=== PATIENT | female | born 1975 | race African-American/Black ===

== ENCOUNTER 2020-09-04 14:55 | Outpatient (REF) | payer MEDICARE, MEDICAID, SELFPAY | END 2020-09-04 14:56 | disposition home or self-care (01) | LOC: HO.LAB 14:55 | PROVIDERS: PCP Internal Medicine; Visit Provider Internal Medicine | DX: Z20.822 Contact with and (suspected) exposure to COVID-19 (principal) | CPT/HCPCS: 36415; C9803; U0003; U0005 ==

== ENCOUNTER 2022-02-24 12:30 | Outpatient (REF) | payer OTHER, SELFPAY ==
[2022-02-24 13:04] LABS: MANUAL DIFF FLAG NO
[2022-02-24 13:23] LABS: Basophils Percent Auto 0.4 % (0-2); Eosinophils Absolute Auto 0.1 X10*3/uL (0.0-0.4); Eosinophils Percent Auto 1.9 % (0-4); Hematocrit 40.4 % (37.0-47.0); Hemoglobin 13.1 g/dl (12.0-16.0); Imm Gran Abs Auto 0.03 X10*3/uL (0.00-0.03); Imm Gran Pct Auto 0.4 % (0.0-0.4); Immature Retic Fraction 11.9 % (3.0-15.9); Lymphocytes Absolute Auto 1.9 X10*3/uL (1.2-4.9); Lymphocytes Percent Auto 26.5 % (20-40); Mean Corpuscular HGB Conc 32.4 g/dl (31.0-35.0); Mean Corpuscular Hemoglobin 25.6 pg (27.0-33.0); Mean Corpuscular Volume 78.9 fL (80.0-98.0); Mean Platelet Volume 10.3 fL (9.4-12.3); Monocytes Absolute Auto 0.4 X10*3/uL (0.1-1.2); Monocytes Percent Auto 5.4 % (2-11); Neutrophils Absolute Auto 4.6 x10*3/uL (2.0-8.3); Neutrophils Percent Auto 65.4 % (45-73); Platelet Count 380 X10*3/uL (160-400); Red Blood Count 5.12 X10*6/uL (4.20-5.50); Red Cell Distribution Width 13.9 % (11.0-16.0); Retic HGB Equivalent 28.9 pg (30.0-35.0); Reticulocyte Percent 2.5 % (0.5-1.8); Reticulocytes Absolute 0.125 X10*6/uL (0.026-0.095)
[2022-02-24 13:34] LABS: Estimated Average Glucose 286 mg/dL; Hemoglobin A1c % 11.6 %
[2022-02-24 14:02] LABS: Alanine Aminotransferase 30 U/L (0-31); Albumin Level 4.2 g/dL (3.5-5.0); Alkaline Phosphatase 100 U/L (39-117); Anion Gap 15 (12-20); Aspartate Amino Transferase 20 U/L (5-31); Bilirubin Total 0.4 mg/dL (0.0-1.0); Blood Urea Nitrogen 17 mg/dL (9-16); Calcium 9.6 mg/dL (8.4-10.2); Carbon Dioxide 23 mmol/L (22-29); Chloride 98 mmol/L (96-108); Cholesterol 382 mg/dL; Estimated Glomerular Filt Rate 43; Glucose Fasting 424 mg/dL (60-99); HDL Cholesterol 45 mg/dL; Iron 128 mcg/dL (30-160); Percent Iron Saturation 38 % (15-50); Potassium 4.9 mmol/L (3.3-5.1); Sodium 131 mmol/L (135-145); Total Iron Binding Capacity 336 mcg/dL (228-428); Total Protein 8.1 g/dL (6.5-8.0); Triglycerides 485 mg/dL; Unsaturated Iron Binding 208 ug/dL
[2022-02-24 14:09] LABS: Ferritin 232 ng/mL (10-250); Thyroid Stimulating Hormone 0.97 uIU/mL (0.32-4.0); Vitamin D 25-OH Total 15.3 ng/mL (>30)
[2022-02-24 14:51] LABS: Amphetamine Screen Urine Not Detected (Not Detect); Barbiturates, Urine Not Detected (Not Detect); Benzodiazepines Screen Urine Not Detected (Not Detect); Cannabinoid Screen Urine Not Detected (Not Detect); Cocaine Screen Urine Not Detected (Not Detect); Fentanyl, urine Not Detected (Not Detect); Opiate Screen Urine Not Detected (Not Detect); Phencyclidine Screen Urine Not Detected (Not Detect)
[2022-02-24 15:32] LABS: Folate 10.8 ng/mL (> or = 4.0); Vitamin B12 651 pg/mL (200-900)
[2022-02-25 04:51] LABS: HBS Num1 0.43 mIU/mL (0-7.99); HBc Num1 0.15 S/CO (0.00-0.79); HBsAGNum1 0.18 S/CO (0.00-0.99); HIV AB/AG Nonreactive (Nonreactive); HIV Num 1 0.08 S/CO (0.00-0.99); Hepatitis B Core Antibody Nonreactive (Nonreactive); Hepatitis B Surface Antigen Negative (Negative); ~HepC Num1 0.06 S/CO (0.00-0.79); ~Hepatitis B Surface Antibody NONREACTIVE (Nonreactive); ~Hepatitis C Antibody Nonreactive (Nonreactive)
[2022-03-02 20:11] LABS: Treponema pallidum Ab FTA ABS Nonreactive (Nonreactive)
== END 2022-02-24 12:31 | disposition home or self-care (01) ==
LOC: HO.LAB 12:30
PROVIDERS: PCP Internal Medicine; Visit Provider Internal Medicine
DX: Z13.1 Encounter for screening for diabetes mellitus (principal); Z11.4 Encounter for screening for human immunodeficiency virus [HIV]; N28.9 Disorder of kidney and ureter, unspecified; E78.00 Pure hypercholesterolemia, unspecified; R79.89 Other specified abnormal findings of blood chemistry
CPT/HCPCS: 80053; 80061; 80307; 82306; 82607; 82728; 82746; 83036; 83540; 84439; 84443; 85025; 85045; 86704; 86706; 86780; 86803; 87340; 87389

== ENCOUNTER 2022-06-07 12:30 | Emergency (ER) | payer SELFPAY ==
[2022-06-07 12:33] VITALS: BP 149/71; PULSE 99; O2SAT 96
[2022-06-07 14:23] VITALS: BP 143/90; PULSE 96; RESP 20; TEMP 36; O2SAT 98; BMI 49.2
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
[2022-06-07] MEDS: Cyclobenzaprine HCl 10 MG TABLET PO (14:32)
[2022-06-07] MEDS: traMADoL HCL 50 MG TABLET PO (14:32)
== END 2022-06-07 14:51 | disposition home or self-care (01) ==
PROVIDERS: Emergency Provider Internal Medicine; PCP Internal Medicine
DX: S16.1XXA Strain of muscle, fascia and tendon at neck level, initial encounter (principal); V43.52XA Car driver injured in collision with other type car in traffic accident, initial encounter; Y93.89 Activity, other specified; Y92.414 Local residential or business street as the place of occurrence of the external cause; Y99.9 Unspecified external cause status
CPT/HCPCS: 99283

== ENCOUNTER 2022-07-05 11:22 | Emergency (ER) | payer OTHER, SELFPAY ==
[2022-07-05 11:44] VITALS: BP 146/47; PULSE 97; O2SAT 96
[2022-07-05 11:49] VITALS: BP 137/92; PULSE 92; RESP 16; TEMP 36.6; O2SAT 98; BMI 42.7
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
[2022-07-05 12:34] LABS: MANUAL DIFF FLAG NO
[2022-07-05 12:39] LABS: Basophils Absolute Auto 0.1 X10*3/uL (0.0-0.2); Basophils Percent Auto 0.9 % (0-2); Eosinophils Absolute Auto 0.2 X10*3/uL (0.0-0.4); Eosinophils Percent Auto 3.3 % (0-4); Hematocrit 39.6 % (37.0-47.0); Hemoglobin 12.9 g/dl (12.0-16.0); Imm Gran Abs Auto 0.02 X10*3/uL (0.00-0.03); Imm Gran Pct Auto 0.3 % (0.0-0.4); Lymphocytes Absolute Auto 2.5 X10*3/uL (1.2-4.9); Lymphocytes Percent Auto 35.9 % (20-40); Mean Corpuscular HGB Conc 32.6 g/dl (31.0-35.0); Mean Corpuscular Hemoglobin 25.9 pg (27.0-33.0); Mean Corpuscular Volume 79.4 fL (80.0-98.0); Mean Platelet Volume 9.8 fL (9.4-12.3); Monocytes Absolute Auto 0.5 X10*3/uL (0.1-1.2); Monocytes Percent Auto 6.9 % (2-11); Neutrophils Absolute Auto 3.6 x10*3/uL (2.0-8.3); Neutrophils Percent Auto 52.7 % (45-73); Platelet Count 361 X10*3/uL (160-400); Red Blood Count 4.99 X10*6/uL (4.20-5.50); Red Cell Distribution Width 13.6 % (11.0-16.0); White Blood Count 6.9 X10*3/uL (4.8-10.8)
[2022-07-05 12:59] LABS: Alanine Aminotransferase 28 U/L (0-31); Albumin Level 3.7 g/dL (3.5-5.0); Alkaline Phosphatase 107 U/L (39-117); Anion Gap 12 (12-20); Aspartate Amino Transferase 18 U/L (5-31); Bilirubin Total 0.3 mg/dL (0.0-1.0); Blood Urea Nitrogen 7 mg/dL (9-16); Carbon Dioxide 25 mmol/L (22-29); Chloride 104 mmol/L (96-108); Creatinine Clr Calc Pharmacy 72.4; Estimated Glomerular Filt Rate 46; Glucose Random 389 mg/dL (60-115); Potassium 4.3 mmol/L (3.3-5.1); Sodium 137 mmol/L (135-145); Total Protein 6.8 g/dL (6.5-8.0)
[2022-07-05 13:12] LABS: Influenza A PCR NEGATIVE (Negative); Influenza B PCR NEGATIVE (Negative); Resp Syncy Virus RNA Qual PCR NEGATIVE (Negative); SARS COV2 PCR INHOUSE NEGATIVE (Negative)
[2022-07-05] MEDS: Cyclobenzaprine HCl 5 MG TABLET PO (15:04)
[2022-07-05] MEDS: HYDROcodone Bit/Acetam 5/325 TABLET 1 TAB PO (15:04)
[2022-07-05] MEDS: Ketorolac Tromethamine 15 MG/ML VIAL IM (15:05)
== END 2022-07-05 15:10 | disposition home or self-care (01) ==
PROVIDERS: Student in an Organized Health Care Education/Training Program; Emergency Provider Emergency Medicine; PCP Internal Medicine
DX: M54.50 Low back pain, unspecified (principal); M79.10 Myalgia, unspecified site; E11.9 Type 2 diabetes mellitus without complications; Z20.822 Contact with and (suspected) exposure to COVID-19; Z79.899 Other long term (current) drug therapy; Z87.891 Personal history of nicotine dependence
CPT/HCPCS: 0241U; 36415; 80053; 85025; 96372; 99283; 99284; J1885

== ENCOUNTER → 2023-03-07 14:43 | Outpatient (BNV) | payer OTHER, SELFPAY | PROVIDERS: PCP Internal Medicine; Visit Provider Nurse Practitioner Family | DX: E11.65 Type 2 diabetes mellitus with hyperglycemia (principal) | CPT/HCPCS: 83036 ==

== ENCOUNTER 2023-03-09 08:27 | Outpatient (AMB) | payer OTHER, SELFPAY ==
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
[2023-03-09 09:14] VITALS: BP 134/76; PULSE 112; O2SAT 98; BMI 41.6
== END 2023-03-09 10:32 | disposition home or self-care (01) ==
PROVIDERS: PCP Internal Medicine; Visit Provider Internal Medicine
DX: E11.65 Type 2 diabetes mellitus with hyperglycemia (principal); F31.9 Bipolar disorder, unspecified; K21.9 Gastro-esophageal reflux disease without esophagitis; J45.909 Unspecified asthma, uncomplicated; Z12.11 Encounter for screening for malignant neoplasm of colon; Z12.39 Encounter for other screening for malignant neoplasm of breast; M54.50 Low back pain, unspecified; E78.00 Pure hypercholesterolemia, unspecified; E66.9 Obesity, unspecified; Z72.0 Tobacco use
CPT/HCPCS: 99214

== ENCOUNTER 2023-05-02 09:27 | Outpatient (AMB) | payer OTHER, MEDICAID, SELFPAY ==
[2023-05-02 09:31] VITALS: BP 116/80; PULSE 113; O2SAT 97; BMI 44.9
--- NOTE | 2023-05-02 09:31 | A.OFFPC_ITS ---
Vital Signs 05/02/23 09:31 Height 5 ft 6 in Weight 278 lb BMI 44.9 BP 116/80 Blood Pressure Location Lt brachial Position Sitting Pulse 113 H Pulse Source Pulse Oximeter Pulse Oximetry (%) 97 Oxygen Delivery Method Room Air Intake Visit Reasons: Transfer of care from [facility] [employer] Technician Required: No Accompanied by: Self / Same As Patient Allergies No Known Allergies Allergy (Verified 05/02/23 10:10) Medication List - Last Reconciled 05/02/23 by Lennox Braden MD albuterol sulfate 90 mcg/actuation (Ventolin HFA) 2 puffs inhalation Q4-6H PRN back brace As directed blood sugar diagnostic (FreeStyle Lite Strips) As directed check the BS QD blood sugar diagnostic As directed check the blood sugar once a day blood-glucose meter (FreeStyle Lite Meter kit) As directed blood-glucose meter (OneTouch Ultra2 Meter kit) As directed check the blood sugar once a day cane As directed clonazepam 1 mg PO BID PRN 30 days clonidine HCl 0.2 mg PO DAILY clotrimazole 1% 1 appl topical BID cyclobenzaprine 5 mg PO TID 15 days diclofenac sodium 1% 4 grams topical QID doxepin 75 mg PO BEDTIME duloxetine 60 mg PO DAILY 30 days fenofibrate 160 mg PO DAILY fluticasone propionate 50 mcg/actuation 1 spray intranasal DAILY gabapentin 300 mg PO BID hydroxyzine pamoate 25 mg PO Q8H PRN lancets (FreeStyle Lancets) As directed check BS QD melatonin 6 mg (2 x 3 mg) PO BEDTIME metformin 500 mg PO BIDWMEAL omeprazole 20 mg PO DAILY quetiapine 50 mg PO DAILY quetiapine 200 mg PO BEDTIME 90 days Tobacco use date assessed: 05/02/23 Dental Screening Dental Screen Date: 05/02/23 Did you have a dental visit in the last 12 months?: Yes Did you have a dental problem in the last 6 months where you did not have access to dental care?: No Was dental information given to patient?: Patient has dentist HPI Transfer of care from HPI Details Patient comes in today for her follow up visit States that she used to see psychiatry at [facility] but she was reportedly discharged from their practice and is now in the process of finding a new psychiatrist States that she will need a refill on her Clonazepam in the meantime, as she has been out of her medicine for a while now Reports experiencing trouble sleeping at night even with her current medications and is wondering if she can be prescribed something stronger than what she is currently on Would also like to request for something stronger for her pain - states that she has a lot of back pain and that he medications Dr. Branch had her on are not helping much Adds that she would like to get checked out for her sleeping problem - states that in addition to having trouble sleeping, she has been told that she stops breathing often when she is asleep at night Patient denies any headaches or dizziness Denies any chest pains, no increased shortness of breath No nausea/ vomiting, no abdominal pain No change in bowel habits noted Patient adds that she would also like to get her flu shot today [facility] Medical History (Updated 05/03/23 @ 06:16 by Lennox Braden MD) Allergic rhinitis Insomnia Morbid obesity with BMI of 40.0-44.9, adult Smoker Anxiety Mixed hyperlipidemia Chronic kidney disease (CKD), stage III (moderate) Arm pain Lower back pain Small bowel obstruction Osteoarthritis of knee Bilateral carpal tunnel syndrome Obesity Menorrhagia Needle stick injury Anxiety Hypercholesterolemia Surgical History History of umbilical hernia repair History of tubal ligation History of section Family History Father No problems noted. Mother Hypertension Arthritis Depression Uterine cancer History of hysterectomy Mental health disorder Paternal Grandmother Breast cancer Stroke Brother In good health Son No problems noted. Son No problems noted. Daughter No problems noted. Daughter No problems noted. Social History Housing: Apartment Alcohol intake: current Alcohol intake frequency: a few times a month Alcohol type: beer and wine Patient Tobacco Use Status: Current everyday Tobacco user Tobacco use type: Cigarette Cigarettes Per Day: 4 e-Cigarette/Vaping Use: Never Used Second Hand Smoke Exposure: No Current occupational status: disabled Cognitive needs: No Hearing needs: No Vision needs: No Questionnaire PHQ-9 Over the last 2 weeks, how often have you been bothered by any of the following problems? 1. Little interest or pleasure in doing things: several days 2. Feeling down, depressed, or hopeless: several days 3. Trouble falling or staying asleep, or sleeping too much: more than half the days 4. Feeling tired or having little energy: nearly every day 5. Poor appetite or overeating: several days 6. Feeling bad about yourself - or that you are a failure or have let yourself or your family down: several days 7. Trouble concentrating on things, such as reading the newspaper or watching television: several days 8. Moving or speaking so slowly that other people could have noticed. Or the opposite - being so fidgety or restless that you have been moving around a lot more than usual: several days 9. Thoughts that you would be better off or of hurting yourself in some way: not at all Total score: 11 Depression Screening Interpretation: Positive Depression Screening Follow-up: Existing condition and In treatment 63606 - PHQ-9 Billing: Yes Source: Developed by Drs. Júnior Jaffe, Sameera De Jesus, Sang Haney and colleagues, with an educational jamie from [employer]. Thrive Questionnaire Date Thrive assessed: 05/02/23 I am a: Patient What is your living situation today?: I have a steady place to live Within the past 12 months, did the food you bought not last and you didn't have the money to get more?: Never true Within the past 12 months, did you worry whether your food would run out before you got money to buy more?: Never true Do you have trouble paying for medicines?: No Do you have trouble getting transportation to medical appointments?: No Do you have trouble paying your heating and electricity bill?: No Do you have trouble taking care of your child, family member or friend?: No Do you have trouble with day-to-day activities such as bathing, preparing meals, shopping, managing finances, etc.?: No Are you currently unemployed and looking for a job?: No Are you interested in more education?: No Please select the resources that you would like help with: None Currently or been in a relationship where the following occur: no concerns reported AUDIT C Alcohol Use Questionnaire (AUDIT-C) 1. How often do you have a drink containing alcohol?: Never 3. How often do you have six or more drinks on one occasion?: Never Total Score: 0 Score Reviewed/Action Taken: Yes BELL-7 AMB Questionnaire BELL-7 Date BELL - 7 assessed: 05/02/23 Feeling nervous, anxious, or on edge: 1 = Several days Not being able to stop or control worryin = Several days Worrying too much about different things: 1 = Several days Trouble relaxin = Several days Being so restless that it is hard to sit still: 1 = Several days Becoming easily annoyed or irritable: 1 = Several days Feeling afraid as if something awful might happen: 1 = Several days Total BELL-7 score (0-4 normal; 5-9 mild; 10-14 moderate; 15-21 severe): 7 Source: Developed by Drs. Júnior Jaffe, Sameera De Jesus, Sang Haney and colleagues, with an educational jamie from [employer]. Review of Systems Const Denies chills, Reports difficulty sleeping, Reports fatigue, Denies fever(s), Denies headache(s) and Reports stops breathing during sleep (reportedly) ENT Denies dysphagia, Denies dizziness, Denies otalgia, Denies headache(s), Denies neck pain, Denies odynophagia and Denies sore throat Card Denies chest pain, Denies palpitations and Denies dyspnea Resp Denies cough and Denies dyspnea GI Denies abdominal pain, Denies constipation, Denies dysphagia, Denies heartburn, Denies diarrhea, Denies nausea, Denies odynophagia and Denies vomiting Denies difficulty voiding, Denies nocturia and Denies dysuria Musc Reports back pain, Reports arthralgias and Denies neck pain Neuro Denies dizziness and Denies headache(s) Psych Reports anxiety Endo Reports fatigue and Denies palpitations Physical exam (Primary Care) Vital Signs: Last Vital Signs Pulse 113 H 05/02/23 09:31 BP 116/80 05/02/23 09:31 Pulse Ox 97 05/02/23 09:31 Oxygen Delivery Method Room Air 05/02/23 09:31 BMI result Body Mass Index 44.9 Tobacco/Smoking Status: Tobacco use Status Tobacco use date assessed 05/02/23 05/02/23 09:39 Patient Tobacco Use Status Current everyday Tobacco 05/02/23 09:39 Tobacco use type Cigarette 05/02/23 09:39 e-Cigarette/Vaping Use Never Used 05/02/23 09:39 PHQ-9: PHQ-9 Score PHQ-9: Total score 11 05/02/23 10:32 Depression Screening Interpretation: Positive Depression Screening Follow-up: Existing condition and In treatment Thrive Assessment: Date of Thrive Assessment Date Thrive assessed 05/02/23 05/02/23 09:39 Currently or been in a relationship where the following occur: no concerns reported Const General: no acute distress and alert HENMT Throat: Yes posterior oropharynx normal and Yes tonsils normal (no TP congestion) Neck Neck: Yes no lymphadenopathy and Yes supple Resp Auscultation: clear to auscultation bilaterally, no rales and no wheezes Cardio Rate: regular rate Rhythm: regular rhythm Heart sounds: no murmurs GI Palpation (GI): Soft to palpation and nontender Auscultation: normal bowel sounds Skin General skin exam: no rashes or lesions noted Extrem General: Yes no clubbing, cyanosis or edema Office Procedures Flu Questionnaire Does the patient have a severe egg allergy?: No Does the patient have severe life threatening allergies?: No Does the patient have a fever or illness today?: No Has the patient ever had Guillain-[place] Syndrome?: No Has the patient ever had any past reaction to a flu shot?: No Immunizations flu vacc [id number] 6mos up(PF) 60 mcg(15 mcgx4)/0.5 mL IM syringe Performing Provider: Lennox Braden MD Performing Location: [facility] Administered by: Amalia Mendez CMA on 05/02/23 10:32 Dose Route Admin Location Dispensed Lot Number Expiration Date NDC Rubber Compounder Mixer 0.5 mL IM Left Deltoid 0.5 mL [id number] 01/28/24 [id number] [employer] VIS Given Date VIS Provided VIS Publication Date 05/02/23 Single Vaccine 21 Eligibility Eligibility Date Funding Source Not [facility] Eligible 05/02/23 Private Assessment and Plan Assessment & Plan (1) Type 2 diabetes mellitus with hyperglycemia: Code(s): E11.65 - Type 2 diabetes mellitus with hyperglycemia Qualifiers: Diabetes mellitus detention insulin use: without long chain quiller tender use Qualified Code(s): E11.65 - Type 2 diabetes mellitus with hyperglycemia Plan: Patient's in-office HgbA1c was most recently at 9.9% a couple of months ago - goal is <7.0% Reinforced diabetic diet Continue Metformin 500 mg BID for now but had a long discussion with patient today regarding the importance of compliance with both her diet and medications - based on her track record, patient appears to have had a long history of noncompliance with her medications and also with her follow-up visits I have advised her that if she wants to continue seeing me as her PCP, she will need to be compliant with her follow-up visits and I will not agree to continue refilling her medications for a long period of time without her coming in for her appointments when scheduled Also stressed to her the importance of getting her diabetes under control as soon as possible she has had diabetes for a while now and that she is already currently in chronic kidney disease stage 3, which is quite advanced for someone who is only 47 years old Have educated her on what potentially can happen if her diabetes continues to be uncontrolled, including progressive kidney failure that will ultimately end in dialysis, blindness due to diabetic retinopathy as well as progressing neuropathy with potential complications including chronic feet pain, ulcers and possible amputations involving her lower extremities Have advised that we will keep her on the same medications for now as this is the 1st time I am seeing her and that we might need to get Endocrinology involved in her diabetes care if we cannot make any headway or improvement in controlling her diabetes over the next few months (2) Chronic kidney disease (CKD), stage III (moderate): Code(s): N18.30 - Chronic kidney disease, stage 3 unspecified Qualifiers: Chronic kidney disease stage 3 subtype: stage 3a (GFR 45-59) Qualified Code(s): N18.31 - Chronic kidney disease, stage 3a Plan: Have again cautioned patient that she is already currently and CKD stage 3, most likely due to her uncontrolled diabetes and stressed the importance of strict glycemic control in slowing down her renal function decline Will consider starting her on an ARB or Judd inhibitor later on for renoprotection and also consider referring her to nephrology for further evaluation and management (3) Mixed hyperlipidemia: Code(s): E78.2 - Mixed hyperlipidemia Plan: Reinforced low cholesterol diet Continue Fenofibrate 160 mg QD for now Will have her recheck her labs and fasting lipids in 3 months for follow-up (4) Witnessed apneic spells: Code(s): R06.81 - Apnea, not elsewhere classified Plan: Per her request, will refer her to Sleep Medicine for further evaluation and management of her reported apneic spells when sleeping at night - patient feels that she may have Sleep Apnea but also adds that she has never been able to get a good night's sleep due to her insomnia Have discussed with her that if she is going to get a sleep study done, she will have to be given something to help her sleep better if what she is currently on is not helping but I will leave that up to Sleep Medicine to determine how to best go about her evaluation (5) GERD (gastroesophageal reflux disease): Code(s): K21.9 - Gastro-esophageal reflux disease without esophagitis Qualifiers: Esophagitis presence: without esophagitis Qualified Code(s): K21.9 - Gastro-esophageal reflux disease without esophagitis Plan: Dietary restrictions reinforced Continue Omeprazole 20 mg QD Have advised patient that her weight and abdominal obesity is also contributing a lot to her reflux symptoms and that losing weight will help relieve a majority of her symptoms although understandably, given her multiple comorbidities and medications, this is easier said than done (6) Asthma: Code(s): J45.909 - Unspecified asthma, uncomplicated Qualifiers: Asthma severity: mild Asthma persistence: intermittent Asthma complication type: uncomplicated Qualified Code(s): J45.20 - Mild intermittent asthma, uncomplicated Plan: Continue Albuerol HFA 1 to 2 inhalations Q 6 hours PRN (7) Low back pain: Code(s): M54.5 - Low back pain Qualifiers: Chronicity: unspecified Back pain laterality: midline Sciatica presence: without sciatica Qualified Code(s): M54.50 - Low back pain, unspecified Plan: Reinforced activity and weight-lifting restrictions Have advised patient that I will not and do not have any plans of starting her on any opioids for chronic pain Have advised her that if she feels that her pain is getting worse, I will refer her to pain management but that will also involve mostly interventional treatments rather than opiate prescriptions Have advised her that her weight also most likely has a lot to do with her chronic low back pain but we understand that it is unrealistic to expect her to lose any significant amount of weight at this time given her multiple comorb idities and medications I have recommended that she try taking OTC Tylenol for pain in addition to what she is currently on - Rx for Acetaminophen 500 mg Q 6 hours PRN sent to pharmacy I will also increase her Gabapentin to 400 mg TID today She is also to continue on her Duloxetine 60 mg QD, Cyclobenzaprine 5 mg TID and Diclofenac 1% topical gel QID PRN and continue using her back brace when needed for additional relief/support for her lower back (8) Allergic rhinitis: Code(s): J30.9 - Allergic rhinitis, unspecified Qualifiers: Allergic rhinitis trigger: unspecified Allergic rhinitis seasonality: unspecified Qualified Code(s): J30.9 - Allergic rhinitis, unspecified Plan: Continue Fluticasone 50 mcg nasal spray QD PRN (9) Insomnia: Code(s): G47.00 - Insomnia, unspecified Qualifiers: Insomnia type: unspecified Qualified Code(s): G47.00 - Insomnia, unspecified Plan: Sleep hygiene discussed Continue Doxepin 75 mg Q HS and Clonidine 0.1 mg Q HS Patient is also on Quetiapine, which sometimes help with sleep although she states that it does not Will increase her Melatonin to 10 mg Q HS Patient has also asked if we can start her additionally on Zolpidem - have advised that given all of the other medications that she is currently already on, it is not advisable and that she should discuss her sleep issues with psych iatry further as soon as she is able to start seeing one again (10) Anxiety: Code(s): F41.9 - Anxiety disorder, unspecified Plan: Continue Hydroxyzine 25 mg TID PRN and Clonazepam 1 mg BID PRN - Clonazepam Rx refilled today Have advised patient what she is saying - that she has been out of her clonazepam for a while now - is not true because based on her prescription log and database, it shows that she just refilled her prescription for clonazepam less than a month ago and if she is taking her Rx as prescribed, she should still have a few days left of her clonazepam prescription I have emphasized to patient that going forward, she will need to actively try to get in to see Psychiatry as I will not agree to continue refilling her psychiatric prescriptions indefinitely and will only do so until she is able to establish with a psychiatrist - I have emphasized that this is not negotiable and that a referral to Psychiatry has already been placed by Dr. Po last month and I will have the coordinator for psychiatry referrals in the office follow-up on this so she should have no other excuse not to pursue this (11) Bipolar disorder: Comment: [facility] counselling 01/2022 Code(s): F31.9 - Bipolar disorder, unspecified Qualifiers: Active/Remission status: currently active Current bipolar episode type: mixed Current episode severity: unspecified Qualified Code(s): F31.60 - Bipolar disorder, current episode mixed, unspecified Plan: Continue Quetiapine 200 mg Q HS and 50 mg QD in AM Have emphasized again that I will give her some time to work on getting in to see and get established with a psychiatrist and prescriber and will agree to continue refilling her prescriptions in the meantime as long as she is actively working on getting this done Have reminded her that I will only refill her prescriptions as they are currently prescribed and will not be adjusting or changing her medications as I am not a practicing psychiatrist and do not treat or manage patients for psychiatric disorders (12) Smoker: Code(s): F17.200 - Nicotine dependence, unspecified, uncomplicated Plan: Counseled on smoking cessation (13) Morbid obesity with BMI of 40.0-44.9, adult: Code(s): E66.01 - Morbid (severe) obesity due to excess calories; Z68.41 - Body mass index [BMI] 40.0-44.9, adult Plan: Reinforced diet; exercise and weight loss are unrealistic expectations for patient at this time Plan Flu vaccine given today Follow up in 3 months Orders: Orders Influenza [id number] Immunization 05/02/23 Z23 - Encounter for immunization Comprehensive [place]. Panel Fast 3 Months E78.00 - Pure hypercholesterolemia, unspecified Vitamin B12 and Folate 3 Months E53.8 - Deficiency of other specified B group vitamins Complete Blood Count Auto Diff 3 Months I10 - Essential (primary) hypertension Lipid Panel 3 Months E78.00 - Pure hypercholesterolemia, unspecified Microalbumin, Random (w Creat) 3 Months E11.9 - Type 2 diabetes mellitus without complications Hemoglobin A1c 3 Months E11.9 - Type 2 diabetes mellitus without complications TSH reflex Free T4 3 Months E78.00 - Pure hypercholesterolemia, unspecified UA CC w/rflx Micro + Cult 3 Months R30.0 - Dysuria Vitamin D 25-OH Total 3 Months E55.9 - Vitamin D deficiency, unspecified Referrals Sleep Medicine Referral R06.81 - Apnea, not elsewhere classified Medications: Changed From gabapentin 300 mg PO BID 180 caps 3RF M54.5 - Low back pain To gabapentin 400 mg PO TID 30 days 90 caps 3RF M54.5 - Low back pain From melatonin 6 mg (2 x 3 mg) PO BEDTIME 180 tabs 0RF To melatonin 10 mg PO BEDTIME 30 days 30 tabs 5RF insomnia Refilled clonazepam 1 mg PO BID 30 days PRN 60 tabs 0RF anxiety F41.9 - Anxiety disorder, unspecified Discontinued clonazepam Discontinued Reason: Duplicate 1 mg PO BID 30 days PRN 60 tabs 0RF anxiety F41.9 - Anxiety disorder, unspecified Coding Level of Care Code Est Pt Level 4 (45179) Diagnoses Type 2 diabetes mellitus with hyperglycemia, without long-term current use of insulin E11.65 Diabetes mellitus long chain quiller tender insulin use: without detention use Stage 3a chronic kidney disease N18.31 Chronic kidney disease stage 3 subtype: stage 3a (GFR 45-59) Mixed hyperlipidemia E78.2 Witnessed apneic spells R06.81 Gastroesophageal reflux disease without esophagitis K21.9 Esophagitis presence: without esophagitis Mild intermittent asthma without complication J45.20 Asthma severity: mild Asthma persistence: intermittent Asthma complication type: uncomplicated Midline low back pain without sciatica, unspecified chronicity M54.50 Chronicity: unspecified Back pain laterality: midline Sciatica presence: without sciatica Allergic rhinitis, unspecified seasonality, unspecified trigger J30.9 Allergic rhinitis trigger: unspecified Allergic rhinitis seasonality: unspecified Insomnia, unspecified type G47.00 Insomnia type: unspecified Anxiety F41.9 Bipolar affective disorder, current episode mixed, current episode severity unspecified F31.60 Active/Remission status: currently active Current bipolar episode type: mixed Current episode severity: unspecified Smoker F17.200 Morbid obesity with BMI of 40.0-44.9, adult E66.01; Z68.41
== END 2023-05-02 10:36 | disposition home or self-care (01) ==
PROVIDERS: PCP Internal Medicine; Visit Provider Internal Medicine
DX: Z23 Encounter for immunization (principal)
CPT/HCPCS: 90471; 90686; 99214

== ENCOUNTER 2023-10-05 11:58 | Outpatient (AMB) | payer MEDICARE, MEDICAID, SELFPAY ==
[2023-10-05 12:03] VITALS: BP 122/84; PULSE 122; O2SAT 97; BMI 46.6
--- NOTE | 2023-10-05 12:03 | A.OFFPC_ITS ---
Vital Signs 10/05/23 12:03 Height 5 ft 6 in Weight 289 lb BMI 46.6 BP 122/84 Blood Pressure Location Lt brachial Position Sitting Pulse 122 H Pulse Source Pulse Oximeter Pulse Oximetry (%) 97 Oxygen Delivery Method Room Air Intake Visit Reasons: Follow Up Quality Tech Required: No Accompanied by: Self / Same As Patient Allergies No Known Allergies Allergy (Verified 10/05/23 12:37) Medication List - Last Reconciled 10/05/23 by Lennox Braden MD acetaminophen 500 mg PO Q6H PRN albuterol sulfate 90 mcg/actuation (Ventolin HFA) 2 puffs inhalation Q4-6H PRN back brace As directed blood sugar diagnostic (FreeStyle Lite Strips) As directed check the BS QD blood sugar diagnostic As directed check the blood sugar once a day blood-glucose meter (FreeStyle Lite Meter kit) As directed cane As directed clonazepam 1 mg PO BID PRN 30 days clonidine HCl 0.2 mg PO DAILY clotrimazole 1% 1 appl topical BID cyclobenzaprine 5 mg PO TID 15 days diclofenac sodium 1% 4 grams topical QID doxepin 75 mg PO BEDTIME duloxetine 60 mg PO DAILY 30 days fenofibrate 160 mg PO DAILY fluticasone propionate 50 mcg/actuation 1 spray intranasal DAILY gabapentin 400 mg PO TID 30 days hydroxyzine pamoate 25 mg PO Q8H PRN lancets (FreeStyle Lancets) As directed check BS QD melatonin 10 mg PO BEDTIME 30 days metformin 500 mg PO BIDWMEAL omeprazole 20 mg PO DAILY quetiapine 50 mg PO DAILY quetiapine 200 mg PO BEDTIME 90 days Tobacco use date assessed: 10/05/23 Dental Screening Dental Screen Date: 10/05/23 Did you have a dental visit in the last 12 months?: Yes Did you have a dental problem in the last 6 months where you did not have access to dental care?: No Was dental information given to patient?: Patient has dentist HPI Follow Up HPI Details Patient comes in today for her follow up visit States that she has been experiencing increased cough and congestion for a few days now and that she has been coughing up some thick greenish phlegm lately Also reports (+) discomfort in her right ear for the past couple of days She denies any fever or sore throat Denies any headaches or dizziness Denies any chest pains, no SOB No nausea/vomiting, no abdominal pain No change in bowel habits noted Still has recurrent low back pain and would like to get her Cyclobenzaprine Rx refilled - is requesting to have her dose increased if possible Also needs her Hydroxyzine and Clonazepam Rx refilled She still has not been able to get her follow up labs done yet - states that she will try to get them done soon but would also like to have STD testing added to her labs [facility] Medical History Allergic rhinitis Insomnia Morbid obesity with BMI of 40.0-44.9, adult Smoker Anxiety Mixed hyperlipidemia Chronic kidney disease (CKD), stage III (moderate) Arm pain Lower back pain Small bowel obstruction Osteoarthritis of knee Bilateral carpal tunnel syndrome Obesity Menorrhagia Needle stick injury Anxiety Hypercholesterolemia Surgical History History of umbilical hernia repair History of tubal ligation History of section Family History Father No problems noted. Mother Hypertension Arthritis Depression Uterine cancer History of hysterectomy Mental health disorder Paternal Grandmother Breast cancer Stroke Brother In good health Son No problems noted. Son No problems noted. Daughter No problems noted. Daughter No problems noted. Social History Housing: Apartment Alcohol intake: current Alcohol intake frequency: a few times a month Alcohol type: beer and wine Patient Tobacco Use Status: Current everyday Tobacco user Tobacco use type: Cigarette Cigarettes Per Day: 4 e-Cigarette/Vaping Use: Never Used Second Hand Smoke Exposure: No service: No Current occupational status: disabled Cognitive needs: No Hearing needs: No Vision needs: No Questionnaire PHQ-9 Over the last 2 weeks, how often have you been bothered by any of the following problems? 1. Little interest or pleasure in doing things: several days 2. Feeling down, depressed, or hopeless: several days 3. Trouble falling or staying asleep, or sleeping too much: more than half the days 4. Feeling tired or having little energy: nearly every day 5. Poor appetite or overeating: several days 6. Feeling bad about yourself - or that you are a failure or have let yourself or your family down: several days 7. Trouble concentrating on things, such as reading the newspaper or watching television: several days 8. Moving or speaking so slowly that other people could have noticed. Or the opposite - being so fidgety or restless that you have been moving around a lot more than usual: several days 9. Thoughts that you would be better off or of hurting yourself in some way: not at all Total score: 11 Depression Screening Interpretation: Positive Depression Screening Follow-up: Existing condition and In treatment Depression Screening Done: Yes 23106 - PHQ-9 Billing: Yes Source: Developed by Drs. Júnior Jaffe, Sameera De Jesus, Sang Haney and colleagues, with an educational jamie from [employer]. Thrive Questionnaire Date Thrive assessed: 10/05/23 I am a: Patient What is your living situation today?: I have a steady place to live Within the past 12 months, did the food you bought not last and you didn't have the money to get more?: Never true Within the past 12 months, did you worry whether your food would run out before you got money to buy more?: Never true Do you have trouble paying for medicines?: No Do you have trouble getting transportation to medical appointments?: No Do you have trouble paying your heating and electricity bill?: No Do you have trouble taking care of your child, family member or friend?: No Do you have trouble with day-to-day activities such as bathing, preparing meals, shopping, managing finances, etc.?: No Are you currently unemployed and looking for a job?: No Are you interested in more education?: No Please select the resources that you would like help with: None Currently or been in a relationship where the following occur: no concerns reported THRIVE Score: 0 AUDIT C Alcohol Use Questionnaire (AUDIT-C) 1. How often do you have a drink containing alcohol?: Never 3. How often do you have six or more drinks on one occasion?: Never Total Score: 0 Score Reviewed/Action Taken: Yes BELL-7 AMB Questionnaire BELL-7 Date BELL - 7 assessed: 10/05/23 Feeling nervous, anxious, or on edge: 2 = More than half the days Not being able to stop or control worryin = More than half the days Worrying too much about different things: 2 = More than half the days Trouble relaxin = More than half the days Being so restless that it is hard to sit still: 2 = More than half the days Becoming easily annoyed or irritable: 2 = More than half the days Feeling afraid as if something awful might happen: 2 = More than half the days Total BELL-7 score (0-4 normal; 5-9 mild; 10-14 moderate; 15-21 severe): 14 Source: Developed by Drs. Júnior Jaffe, Sameera De Jesus, Sang Haney and colleagues, with an educational jamie from [employer]. Review of Systems Const Denies chills, Reports difficulty sleeping, Reports fatigue, Denies fever(s) and Denies headache(s) ENT Denies dysphagia, Denies dizziness, Denies otalgia (but (+) right ear discomfort), Denies headache(s), Reports nasal congestion, Denies neck pain, Reports odynophagia and Denies sore throat Card Denies chest pain, Denies palpitations and Denies dyspnea Resp Reports chest congestion (mild), Reports cough (on and off, coughs up thick greenish phlegm lately), Denies pain with cough, Denies dyspnea and Denies wheezing GI Denies abdominal pain, Denies constipation, Denies dysphagia, Denies heartburn, Denies diarrhea, Denies nausea, Reports odynophagia and Denies vomiting Denies difficulty voiding, Denies nocturia and Denies dysuria Musc Reports back pain (recurrent, over the lower back), Reports arthralgias and Denies neck pain Skin/Breast Denies rash Neuro Denies dizziness and Denies headache(s) Psych Reports anxiety Endo Reports fatigue and Denies palpitations Aller/Immun Denies wheezing Physical exam (Primary Care) Vital Signs: Last Vital Signs Pulse 122 H 10/05/23 12:03 BP 122/84 10/05/23 12:03 Pulse Ox 97 10/05/23 12:03 Oxygen Delivery Method Room Air 10/05/23 12:03 BMI result Body Mass Index 46.6 Tobacco/Smoking Status: Tobacco use Status Tobacco use date assessed 10/05/23 10/05/23 12:07 Patient Tobacco Use Status Current everyday Tobacco 10/05/23 12:07 Tobacco use type Cigarette 10/05/23 12:07 e-Cigarette/Vaping Use Never Used 10/05/23 12:07 PHQ-9: PHQ-9 Score PHQ-9: Total score 11 10/05/23 12:47 Depression Screening Interpretation: Positive Depression Screening Follow-up: Existing condition and In treatment Thrive Assessment: Date of Thrive Assessment Date Thrive assessed 10/05/23 10/05/23 12:07 Currently or been in a relationship where the following occur: no concerns reported Const General: no acute distress and alert HENMT Ears: TM's normal bilaterally and EAC's normal (but (+) cerumen in both ear canals) Face and sinus: No sinus tenderness Throat: Yes posterior oropharynx normal and Yes tonsils normal (no TP congestion) Neck Neck: Yes no lymphadenopathy and Yes supple Resp Auscultation: clear to auscultation bilaterally, no rales and no wheezes Cardio Rate: regular rate Rhythm: regular rhythm Heart sounds: no murmurs GI Palpation (GI): Soft to palpation and nontender Auscultation: normal bowel sounds Back/Spine/Pelvis Thoracic/Lumbar Spine: paraspinal muscle tenderness bilaterally in the mid lumbar and in the lower lumbar Skin Rashes: no rashes Extrem General: Yes no clubbing, cyanosis or edema Assessment and Plan Assessment & Plan (1) Type 2 diabetes mellitus with hyperglycemia: Code(s): E11.65 - Type 2 diabetes mellitus with hyperglycemia Qualifiers: Diabetes mellitus termite renewal inspector insulin use: without termite renewal inspector use Qualified Code(s): E11.65 - Type 2 diabetes mellitus with hyperglycemia Plan: Patient's in-office HgbA1c was at 9.9% when last checked in February 2023 - goal is <7.0% She had follow up labs ordered and was instructed to get them done a few months ago but she has not yet done so Is again advised that she has NOT HAD any follow up labs done since June 2022 and should try to get them done ALBERTO - orders updated Reinforced diabetic diet Continue Metformin 500 mg BID for now but have again discussed with patient and stressed to her the importance of compliance with her diet and medications as well as timely follow up visits - patient has a long history of noncompliance with her medications and also with keeping her appointments (2) Chronic kidney disease (CKD), stage III (moderate): Code(s): N18.30 - Chronic kidney disease, stage 3 unspecified Qualifiers: Chronic kidney disease stage 3 subtype: stage 3a (GFR 45-59) Qualified Code(s): N18.31 - Chronic kidney disease, stage 3a Plan: Have again cautioned patient that she is already currently in CKD stage 3, most likely due to her uncontrolled diabetes, and have stressed the importance of strict glycemic control in slowing down her renal function decline Will consider starting her on an ARB or Judd inhibitor later on for renoprotection and also consider referring her to nephrology for further evaluation and management but will need her to get her labs updated first (3) Mixed hyperlipidemia: Code(s): E78.2 - Mixed hyperlipidemia Plan: Reinforced low cholesterol diet Continue Fenofibrate 160 mg QD for now Will have her recheck her labs and fasting lipids for follow-up (4) GERD (gastroesophageal reflux disease): Code(s): K21.9 - Gastro-esophageal reflux disease without esophagitis Qualifiers: Esophagitis presence: without esophagitis Qualified Code(s): K21.9 - Gastro-esophageal reflux disease without esophagitis Plan: Dietary restrictions reinforced Continue Omeprazole 20 mg QD (5) Asthma: Code(s): J45.909 - Unspecified asthma, uncomplicated Qualifiers: Asthma severity: mild Asthma persistence: intermittent Asthma complication type: uncomplicated Qualified Code(s): J45.20 - Mild intermittent asthma, uncomplicated Plan: Continue Albuterol HFA 1 to 2 inhalations Q 6 hours PRN (6) Upper respiratory tract infection: Code(s): J06.9 - Acute upper respiratory infection, unspecified Qualifiers: URI type: unspecified URI Qualified Code(s): J06.9 - Acute upper respiratory infection, unspecified Plan: Will start patient empirically on Amoxicillin 500 mg Q 8 hours x 7 days Advised that this should also cover any potential ear infections that she thinks she may have (7) Low back pain: Code(s): M54.5 - Low back pain Qualifiers: Chronicity: unspecified Back pain laterality: midline Sciatica presence: without sciatica Qualified Code(s): M54.50 - Low back pain, unspecified Plan: Reinforced activity and weight-lifting restrictions Have reminded patient that I do not have any plans of starting her on opioids for chronic pain and that if she feels that her low back pain is getting worse, I will refer her to pain management for interventional treatment(s) Continue Acetaminophen 500 mg Q 6 hours PRN for pain, Gabapentin 400 mg TID, Duloxetine 60 mg QD and Diclofenac 1% topical gel QID PRN Per request, will increase her Cyclobenzaprine to 10 mg TID PRN She is also advised to continue using her back brace when needed for additional relief/support for her lower back (8) Allergic rhinitis: Code(s): J30.9 - Allergic rhinitis, unspecified Qualifiers: Allergic rhinitis trigger: unspecified Allergic rhinitis seasonality: unspecified Qualified Code(s): J30.9 - Allergic rhinitis, unspecified Plan: Continue Fluticasone 50 mcg nasal spray QD PRN (9) Insomnia: Code(s): G47.00 - Insomnia, unspecified Qualifiers: Insomnia type: unspecified Qualified Code(s): G47.00 - Insomnia, unspecified Plan: Sleep hygiene reinforced Continue Doxepin 75 mg Q HS, Clonidine 0.1 mg Q HS and Melatonin 10 mg Q HS PRN Patient is also on Quetiapine, which sometimes help with sleep although she states that it does not (10) Anxiety: Code(s): F41.9 - Anxiety disorder, unspecified Plan: Continue Hydroxyzine 25 mg TID PRN and Clonazepam 1 mg BID PRN - Clonazepam Rx refilled today I have again emphasized to patient that she needs to actively try to get in to see Psychiatry as soon as possible as I will not continue refilling her psychiatric prescriptions indefinitely and will only do so until she is able to establish with a psychiatrist (11) Bipolar disorder: Comment: [facility] 01/2022 Code(s): F31.9 - Bipolar disorder, unspecified Qualifiers: Active/Remission status: currently active Current bipolar episode type: mixed Current episode severity: unspecified Qualified Code(s): F31.60 - Bipolar disorder, current episode mixed, unspecified Plan: Continue Quetiapine 200 mg Q HS and 50 mg QD in AM Have emphasized again that she should get established with a psychiatrist and prescriber ALBERTO as I will not continue refilling her prescriptions indefinitely (12) Smoker: Code(s): F17.200 - Nicotine dependence, unspecified, uncomplicated Plan: Counseled again on smoking cessation (13) Morbid obesity with BMI of 45.0-49.9, adult: Code(s): E66.01 - Morbid (severe) obesity due to excess calories; Z68.42 - Body mass index [BMI] 45.0-49.9, adult Plan: Reinforced diet; exercise and weight loss are unrealistic expectations for patient at this time and she has actually gained some more weight since she was last here (14) Screening for STDs (sexually transmitted diseases): Code(s): Z11.3 - Encounter for screening for infections with a predominantly sexual mode of transmission Plan: Per request, will include STD testing to her current labs and patient states that she will try to get all of these done ALBERTO Plan Follow up in 3 months Orders: Orders Hepatitis B,C Profile 10/05/23 Z20.2 - Contact with and (suspected) exposure to infections with a predominantly sexual mode of transmission CT NG by PCR 10/05/23 Z20.2 - Contact with and (suspected) exposure to infections with a predominantly sexual mode of transmission Syphilis Screen 10/05/23 Z20.2 - Contact with and (suspected) exposure to infections with a predominantly sexual mode of transmission HIV Ab/Ag 10/05/23 Z20.2 - Contact with and (suspected) exposure to infections with a predominantly sexual mode of transmission Medications: New amoxicillin 500 mg PO Q8H 7 days 21 caps 0RF Changed From cyclobenzaprine 5 mg PO TID 15 days 45 tabs 0RF upper back pain M54.5 - Low back pain To cyclobenzaprine 10 mg PO TID 15 days PRN 45 tabs 0RF upper back pain M54.5 - Low back pain Refilled clonazepam 1 mg PO BID 30 days PRN 60 tabs 0RF anxiety F41.9 - Anxiety disorder, unspecified hydroxyzine pamoate 25 mg PO Q8H PRN 90 caps 0RF for anxiety F41.9 - Anxiety disorder, unspecified Coding Level of Care Code Est Pt Level 4 (35139) Diagnoses Type 2 diabetes mellitus with hyperglycemia, without long-term current use of insulin E11.65 Diabetes mellitus termite renewal inspector insulin use: without shelter use Stage 3a chronic kidney disease N18.31 Chronic kidney disease stage 3 subtype: stage 3a (GFR 45-59) Mixed hyperlipidemia E78.2 Gastroesophageal reflux disease without esophagitis K21.9 Esophagitis presence: without esophagitis Mild intermittent asthma without complication J45.20 Asthma severity: mild Asthma persistence: intermittent Asthma complication type: uncomplicated Upper respiratory tract infection, unspecified type J06.9 URI type: unspecified URI Midline low back pain without sciatica, unspecified chronicity M54.50 Chronicity: unspecified Back pain laterality: midline Sciatica presence: without sciatica Allergic rhinitis, unspecified seasonality, unspecified trigger J30.9 Allergic rhinitis trigger: unspecified Allergic rhinitis seasonality: unspecified Insomnia, unspecified type G47.00 Insomnia type: unspecified Anxiety F41.9 Bipolar affective disorder, current episode mixed, current episode severity unspecified F31.60 Active/Remission status: currently active Current bipolar episode type: mixed Current episode severity: unspecified Smoker F17.200 Morbid obesity with BMI of 45.0-49.9, adult E66.01; Z68.42 Screening for STDs (sexually transmitted diseases) Z11.3
== END 2023-10-05 12:52 | disposition home or self-care (01) ==
PROVIDERS: PCP Internal Medicine; Visit Provider Internal Medicine
DX: E11.65 Type 2 diabetes mellitus with hyperglycemia (principal); N18.31 Chronic kidney disease, stage 3a; E66.01 Morbid (severe) obesity due to excess calories; Z68.42 Body mass index [BMI] 45.0-49.9, adult; F31.60 Bipolar disorder, current episode mixed, unspecified; E78.2 Mixed hyperlipidemia; K21.9 Gastro-esophageal reflux disease without esophagitis; J45.20 Mild intermittent asthma, uncomplicated; J06.9 Acute upper respiratory infection, unspecified; M54.50 Low back pain, unspecified; J30.9 Allergic rhinitis, unspecified; G47.00 Insomnia, unspecified
CPT/HCPCS: 99214

== ENCOUNTER 2025-06-24 09:33 | Outpatient (AMB) | payer OTHER, SELFPAY ==
[2025-06-24 09:38] VITALS: BP 130/82; PULSE 98; TEMP 36.2; O2SAT 97; BMI 48.1
--- NOTE | 2025-06-24 09:38 | A.OFFPC_ITS ---
Vital Signs 06/24/25 09:38 Height 5 ft 6 in Weight 298 lb BMI 48.1 BP 130/82 Blood Pressure Location Lt brachial Position Sitting Pulse 98 Pulse Source Pulse Oximeter Temp 97.1 F Temp Source Temporal Artery Scan Pulse Oximetry (%) 97 Oxygen Delivery Method Room Air Intake Visit Reasons: Med refill request Allergies No Known Allergies Allergy (Verified 06/24/25 09:39) Medication List - Last Reconciled 06/24/25 by Rocío Sheppard MD acetaminophen 500 mg PO Q6H PRN albuterol sulfate 90 mcg/actuation (Ventolin HFA) 2 puffs inhalation Q4-6H PRN atorvastatin (Lipitor) 20 mg PO DAILY back brace As directed blood sugar diagnostic As directed check the blood sugar once a day cane As directed clonazepam 1 mg PO BID PRN 30 days clonidine HCl 0.2 mg PO DAILY clotrimazole 1% 1 appl topical BID cyclobenzaprine 10 mg PO TID PRN 15 days diclofenac sodium 1% 4 grams topical QID doxepin 75 mg PO BEDTIME duloxetine 60 mg PO DAILY 30 days fenofibrate 160 mg PO DAILY fluticasone propionate 50 mcg/actuation 1 spray intranasal DAILY gabapentin 400 mg PO TID 30 days hydroxyzine pamoate 25 mg PO Q8H PRN lancets (FreeStyle Lancets) As directed check BS QD melatonin 10 mg PO BEDTIME 30 days metformin 1,000 mg PO BID 30 days nicotine 1 patch transdermal Q24H omeprazole 20 mg PO DAILY [one touch glucose momnitor As directed] [one touch lancets As directed] [one touch strips As directed] quetiapine 200 mg PO BEDTIME 90 days quetiapine 50 mg PO DAILY sennosides (Senna Lax) 8.6 mg PO BEDTIME PRN Tobacco use date assessed: 06/24/25 Dental Screening Dental Screen Date: 06/24/25 Did you have a dental visit in the last 12 months?: No Did you have a dental problem in the last 6 months where you did not have access to dental care?: No Was dental information given to patient?: Patient has dentist HPI HPI Comments History of Present Illness Details Patient is a 50-year-old female who is presenting with a request for medication refills and management of chronic conditions including anxiety, depression, and diabetes. The patient has a history of anxiety, depression, and bipolar disorder, managed by psychiatry at [facility], She reports she established care with a new provider there and has her next appointment in July 2025. The patient reports significant psychological distress about a neighbor who the patient believes has been stalking her for two years. Symptoms include depression, severe anxiety, and irritability. The patient reports chronic insomnia, stating difficulty falling asleep and staying asleep despite taking multiple medications. The current psychiatric medication regimen includes duloxetine 60 mg daily, quetiapine 300 mg at night (increased from 250 mg per patient), clonazepam 1 mg BID, clonidine 0.2 mg daily, Doxepin 75 mg, and hydroxyzine 25 mg TID as needed. Patient states that her new provider plans to wean the patient off clonazepam due to concerns of future memory loss and has discussed stopping doxepin. The patient has a history of uncontrolled type 2 diabetes, with A1c of 8.9 in clinic today. Tshe she is currently on metformin 500 mg twice daily. For hyperlipidemia, the patient takes fenofibrate. Other reported history includes heartburn, for which the patient takes omeprazole but is currently out of the medication. The patient reports chronic back pain and muscle cramps, taking cyclobenzaprine 10 mg three times a day. The patient also complains of a new issue with the ears, described as a pulsatile sensation and ringing triggered by the neighbor's stomping. The patient reports smoking tobacco, but The last blood work was done a while ago. [facility] Medical History Allergic rhinitis Insomnia Morbid obesity with BMI of 40.0-44.9, adult Smoker Anxiety Mixed hyperlipidemia Chronic kidney disease (CKD), stage III (moderate) Arm pain Lower back pain Small bowel obstruction Osteoarthritis of knee Bilateral carpal tunnel syndrome Obesity Menorrhagia Needle stick injury Anxiety Hypercholesterolemia Surgical History History of umbilical hernia repair History of tubal ligation History of section Family History Father No problems noted. Mother Hypertension Arthritis Depression Uterine cancer History of hysterectomy Mental health disorder Paternal Grandmother Breast cancer Stroke Brother In good health Son No problems noted. Son No problems noted. Daughter No problems noted. Daughter No problems noted. Social History Housing: Apartment Alcohol intake: current Alcohol intake frequency: a few times a month Alcohol type: beer and wine Patient Tobacco Use Status: Current everyday Tobacco user Tobacco use type: Cigarette Cigarettes Per Day: 4 e-Cigarette/Vaping Use: Never Used Second Hand Smoke Exposure: No service: No Current occupational status: disabled Cognitive needs: No Hearing needs: No Vision needs: No Questionnaire PHQ-9 Over the last 2 weeks, how often have you been bothered by any of the following problems? 1. Little interest or pleasure in doing things: several days 2. Feeling down, depressed, or hopeless: nearly every day 3. Trouble falling or staying asleep, or sleeping too much: nearly every day 4. Feeling tired or having little energy: nearly every day 5. Poor appetite or overeating: nearly every day 6. Feeling bad about yourself - or that you are a failure or have let yourself or your family down: nearly every day 7. Trouble concentrating on things, such as reading the newspaper or watching te levision: nearly every day 8. Moving or speaking so slowly that other people could have noticed. Or the opposite - being so fidgety or restless that you have been moving around a lot more than usual: nearly every day 9. Thoughts that you would be better off or of hurting yourself in some way: not at all Total score: 22 Depression Screening Interpretation: Positive Depression Screening Done: Yes 35027 - PHQ-9 Billing: Yes Source: Developed by Drs. Júnior Jaffe, Sameera De Jesus, Sang Haney and colleagues, with an educational jamie from [employer]. Thrive Questionnaire Date Thrive assessed: 06/24/25 I am a: Patient What is your living situation today?: I have a steady place to live Within the past 12 months, did the food you bought not last and you didn't have the money to get more?: Sometimes True Within the past 12 months, did you worry whether your food would run out before you got money to buy more?: Sometimes True Do you have trouble paying for medicines?: No Do you have trouble getting transportation to medical appointments?: Yes Do you have trouble paying your heating and electricity bill?: I choose not to answer this question Do you have trouble taking care of your child, family member or friend?: No Do you have trouble with day-to-day activities such as bathing, preparing meals, shopping, managing finances, etc.?: Yes Are you currently unemployed and looking for a job?: No Are you interested in more education?: Yes Please select the resources that you would like help with: Housing/Halfway and Education Currently or been in a relationship where the following occur: I choose not to answer THRIVE Score: 3 AUDIT C Alcohol Use Questionnaire (AUDIT-C) 1. How often do you have a drink containing alcohol?: Never 3. How often do you have six or more drinks on one occasion?: Never Total Score: 0 BELL-7 AMB Questionnaire BELL-7 Date BELL - 7 assessed: 06/24/25 Feeling nervous, anxious, or on edge: 3 = Nearly every day Not being able to stop or control worryin = Nearly every day Worrying too much about different things: 3 = Nearly every day Trouble relaxin = Nearly every day Being so restless that it is hard to sit still: 3 = Nearly every day Becoming easily annoyed or irritable: 3 = Nearly every day Feeling afraid as if something awful might happen: 3 = Nearly every day Total BELL-7 score (0-4 normal; 5-9 mild; 10-14 moderate; 15-21 severe): 21 Source: Developed by Drs. Júnior Jaffe, Sameera De Jesus, Sang Haney and colleagues, with an educational jamie from [employer]. BELL-7 Assessment Billing BELL-7 Assessment Tool: BELL-7 Assessment 20753 Physical exam (Primary Care) Vital Signs: Last Vital Signs Temp 97.1 F 06/24/25 09:38 Pulse 98 06/24/25 09:38 BP 130/82 06/24/25 09:38 Pulse Ox 97 06/24/25 09:38 Oxygen Delivery Method Room Air 06/24/25 09:38 General: alert, oriented ?3, in no acute distress. Appears anxious HEENT: Normocephalic, atraumatic, PERRLA, EOMI, no scleral icterus. External ears normal, tympanic membranes intact bilaterally, no erythema or effusion. Nares patent, normal mucosa pink, no discharge. No oral lesions, or pharyngeal erythema. Neck Supple. Cardiovascular: RRR, S1-S2 appreciated, no murmurs, rubs or gallops. Respiratory: Lungs clear to auscultation bilaterally, no wheezes, rales or rhon chi. Abdomen: Soft, nontender, nondistended. Normoactive bowel sounds. BMI result Body Mass Index 48.1 Tobacco/Smoking Status: Tobacco use Status Tobacco use date assessed 06/24/25 06/24/25 09:39 Patient Tobacco Use Status Current everyday Tobacco 06/24/25 09:39 Tobacco use type Cigarette 06/24/25 09:39 e-Cigarette/Vaping Use Never Used 06/24/25 09:39 PHQ-9: PHQ-9 Score PHQ-9: Total score 22 06/24/25 09:45 Depression Screening Interpretation: Positive Thrive Assessment: Date of Thrive Assessment Date Thrive assessed 06/24/25 06/24/25 09:45 Currently or been in a relationship where the following occur: I choose not to answer Results AMB Hemoglobin A1c AMB Hemoglobin A1c 8.9 % Last Edit by Vi Acevedo CMA on 06/24/25 09:52 Coding Level of Care Code Est Pt Level 4 (06333) Diagnoses Bipolar affective disorder, current episode mixed, current episode severity unspecified F31.60 Active/Remission status: currently active Current bipolar episode type: mixed Current episode severity: unspecified Depressive disorder F32.A Anxiety F41.9 Type 2 diabetes mellitus with hyperglycemia, without long-term current use of insulin E11.65 Diabetes mellitus fci insulin use: without long winder tender use Mixed hyperlipidemia E78.2 Tinnitus of both ears H93.13 Laterality: bilateral Additional Codes BELL-7 Assessment Billing - BELL-7 Assessment Tool: BELL-7 Assessment 52903 ([id number]) PHQ-9 - 91307 - PHQ-9 Billing: Yes ([id number]) Assessment & Plan Assessment & Plan (1) Bipolar disorder: Comment: [facility] 01/2022 Code(s): F31.9 - Bipolar disorder, unspecified Category: Medical Qualifiers: Active/Remission status: currently active Current bipolar episode type: mixed Current episode severity: unspecified Qualified Code(s): F31.60 - Bipolar disorder, current episode mixed, unspecified Plan: Patient with a history of bipolar disorder, currently established with Psychiatry at [facility]. Patient reports that she recently established with a new provider there, with who she has a follow up appointment in July 2025. Patient states that her new provider will be managing her medications with a plan to wean her off doxepin and Klonopin, per patient. Patient presenting today with severe anxiety and depression associated with insomnia, irritability due to significant psychological distress about a neighbor who the patient believes has been stalking her for two years. PHQ-9 of 22 consistent with severe depression, and BELL-7 score of 21 severe anxiety. The current psychiatric medication regimen includes duloxetine 60 mg daily, quetiapine 300 mg at night (increased from 250 mg per patient), clonazepam 1 mg BID, clonidine 0.2 mg daily, Doxepin 75 mg, and hydroxyzine 25 mg TID as needed. Continue same regimen at this time. Refill for duloxetine, clonazepam, hydroxyzine was sent. Patient will follow up with her psychiatrist as scheduled with a plan to wean her off medications (2) Depressive disorder: Code(s): F32.A - Depression, unspecified Category: Medical Plan: As above (3) Anxiety: Code(s): F41.9 - Anxiety disorder, unspecified Category: Medical Plan: As above (4) Type 2 diabetes mellitus with hyperglycemia: Code(s): E11.65 - Type 2 diabetes mellitus with hyperglycemia Category: Medical Qualifiers: Diabetes mellitus fci insulin use: without long winder tender use Qualified Code(s): E11.65 - Type 2 diabetes mellitus with hyperglycemia Plan: Patient with history of type 2 diabetes mellitus, currently on metformin 500 mg twice a day. Her A1c in clinic today is 8.9. She has not followed up with her PCP since September 2023. Plan - increase metformin to 1000 mg twice a day - obtain CMP, urine microalbumin - start atorvastatin 20 mg daily -follow up with Dr. Braden as scheduled in July 2025 (5) Mixed hyperlipidemia: Code(s): E78.2 - Mixed hyperlipidemia Category: Medical Plan: Patient with history of mixed hyperlipidemia, on fenofibrate 160 mg daily. Obtain lipid panel Start atorvastatin 20 mg given patient's history of uncontrolled diabetes (6) Ear ringing: Code(s): H93.19 - Tinnitus, unspecified ear Qualifiers: Laterality: bilateral Qualified Code(s): H93.13 - Tinnitus, bilateral Plan: Patient complains of a new issue with the ears, described as a pulsatile sensation and ringing triggered by the neighbor's stomping. Referral to ENT provided further evaluation. Orders: Orders Complete Blood Count Auto Diff Today Z00.00 - Encounter for general adult medical examination without abnormal findings AMB Hemoglobin A1c Today Z13.9 - Encounter for screening, unspecified Comprehensive Met. Panel Today E11.9 - Type 2 diabetes mellitus without complications Lipid Panel with Reflex Today E78.2 - Mixed hyperlipidemia Referrals Ear/Nose/Throat Referral H93.19 - Tinnitus, unspecified ear Medications: New metformin 1,000 mg PO BID 60 tabs 1RF diabetes mellitus 30 days atorvastatin (Lipitor) 20 mg PO DAILY 30 tabs 1RF Refilled 2 clonazepam 1 mg PO BID PRN 60 tabs 0RF anxiety 30 days F41.9 - Anxiety disorder, unspecified gabapentin 400 mg PO TID 90 caps 0RF 30 days M54.5 - Low back pain hydroxyzine pamoate 25 mg PO Q8H PRN 90 caps 0RF for anxiety F41.9 - Anxiety disorder, unspecified duloxetine 60 mg PO DAILY 30 caps 1RF 30 days F41.9 - Anxiety disorder, unspecified cyclobenzaprine 10 mg PO TID PRN 45 tabs 1RF upper back pain 15 days M54.5 - Low back pain Discontinued metformin Discontinued Reason: Ancillary Entered New Order 500 mg PO BIDWMEAL 60 tabs 0RF E11.65 - Type 2 diabetes mellitus with hyperglycemia
== END 2025-06-24 10:20 | disposition home or self-care (01) ==
LOC: HO.HMCH 09:34
PROVIDERS: PCP Internal Medicine; Visit Provider Student in an Organized Health Care Education/Training Program
DX: F31.60 Bipolar disorder, current episode mixed, unspecified (principal); F32.A Depression, unspecified; F41.9 Anxiety disorder, unspecified; E11.65 Type 2 diabetes mellitus with hyperglycemia; E78.2 Mixed hyperlipidemia; H93.13 Tinnitus, bilateral; Z13.9 Encounter for screening, unspecified

== ENCOUNTER → 2025-06-24 09:33 | Outpatient (BNVA) | payer OTHER, SELFPAY | PROVIDERS: PCP Internal Medicine; Visit Provider Student in an Organized Health Care Education/Training Program | DX: E11.65 Type 2 diabetes mellitus with hyperglycemia (principal); E78.2 Mixed hyperlipidemia; H93.13 Tinnitus, bilateral; F31.60 Bipolar disorder, current episode mixed, unspecified; F32.A Depression, unspecified; F41.9 Anxiety disorder, unspecified | CPT/HCPCS: 83036; 96127; 99212 ==